=== PATIENT | female | born 1950 | race Caucasian/White ===

== ENCOUNTER 2016-08-04 10:57 | Day surgery (SDC) | payer MEDICARE, OTHER ==
[2016-07-28 18:38] LABS: HEMATOCRIT 41.6 % (36.0-48.0); HEMOGLOBIN 13.1 g/dL (12.0-16.0)
[2016-07-28 18:54] LABS: BUN (BLOOD UREA NITROGEN) 12 MG/DL (6-23); CALCIUM, SERUM 9.4 MG/DL (8.5-10.4); CHLORIDE, SERUM 105 MMOL/L (96-112); CO2 (CARBON DIOXIDE) 24 MMOL/L (24-34); CREATININE 0.75 MG/DL (0.55-1.02); GFR AFRICAN AMERICAN 97 ML/MIN (>=60); GFR NON AFRICAN AMERICAN 84 ML/MIN (>=60); GLUCOSE, SERUM 77 MG/DL (60-99); POTASSIUM, SERUM 4.3 MMOL/L (3.5-5.3)
[2016-07-28 18:55] LABS: SODIUM, SERUM 140 MMOL/L (135-148)
--- NOTE | ~2016-08-04 | OP ---
Record Of Operation [facility] [address] [place]. [address] NAME: BECKIE MONGE : 50 STATUS : [facility]#: [id number] AGE: 65 ADM/REG DATE : 08/04/16 MR#: [id number] REPORT SERV DATE: 08/04/16 DICTATED BY: Prince DE LA TORRE DATE: 08/04/16 REPORT STATUS : Draft TRANSCRIBED BY: CHESTER DATE: 08/04/16 DATE OF PROCEDURE: PREOPERATIVE DIAGNOSIS: Basal cell carcinoma of the left upper nasal sidewall-medial portion of the left lower eyelid. POSTOPERATIVE DIAGNOSIS: Basal cell carcinoma of the left upper nasal sidewall-medial portion of the left lower eyelid. NAME OF OPERATION: 1. Wide excision of basal cell carcinoma of the left upper nasal sidewall-medial portion of left lower eyelid with frozen section. 2. Harvesting of full-thickness skin graft from right upper outer eyelid (in the swinomish's foot area). 3. Full-thickness skin graft reconstruction of left upper nasal sidewall-medial lower eyelid defect. FINDINGS: A 5 mm lesion requiring a 9 mm resection, involving the left upper nasal sidewall and adjacent medial portion of the left lower eyelid. INDICATION: This 65-year-old female has a biopsy-proven basal cell carcinoma of the left upper nasal sidewall fairly close to a previous resection of a basal cell carcinoma, but separate from it. We had resected basal cell carcinoma of the left medial lower eyelid near the lash line and reconstructed that with a full-thickness skin graft. She had a lesion separate from the grafted area but fairly close to it, and this was biopsied and found to be basal cell carcinoma. She now presents for excision with frozen section and reconstruction. The pros and cons, alternatives, benefits, risks, limitations, and complications (including, but not limited to, graft failure, distortion of the eye, scleral show, ectropion, imponderables) were discussed at length. No guarantees expressed. She understands and wishes to proceed. Proper consent obtained. DESCRIPTION OF PROCEDURE: She was taken into the operating room and given general oral endotracheal anesthesia in the supine position. The table was turned. The eyelid area bilaterally was prepped with diluted Betadine solution (diluted with saline to make a "tea"). The remainder the face was prepped with chlorhexidine and saline. Sterile drapes were applied. The lesion of the left upper nasal sidewall near the lower eyelid was marked out with a marking pen, and then a 2 mm margin of safety was marked out around this creating a 9 mm circular excision. The 12, 3, 6, and 9 o'clock positions were marked. This excision extended into the medial portion of the left lower eyelid. The area was injected with 1% Xylocaine with 1:100,000 epinephrine. Five minutes elapsed for vasoconstriction. The excision was performed with a #15C blade according to the markings to include the margins around the lesion. Before the tumor was removed from the tumor bed, a suture was placed at the 12 o'clock position. The tumor was then removed from the tumor bed and given Record Of Operation [address] [address] NAME: BECKIE MONGE : 50 STATUS : [facility] PAT#: [id number] AGE: 65 ADM/REG DATE : 08/04/16 MR#: [id number] REPORT SERV DATE: 08/04/16 DICTATED BY: Prince DE LA TORRE DATE: 08/04/16 REPORT STATUS : Draft TRANSCRIBED BY: CHESTER DATE: 08/04/16 to the pathology team to perform frozen sections. While the frozen sections were being performed, a template was made of the defect. This was transferred over to the swinomish's foot area of the opposite right upper eyelid and angled fusiform ellipse was marked out in a fashion not to do any raising of her upper eyelid. The maximum pull was just outside the lateral canthus and actually would help elevate the lower eyelid when this area was repaired after the graft harvested. The template fit nicely in this angled fusiform excision. The frozen sections returned showing margins free of tumor. Next, the right upper eyelid area that was marked out for excision was injected with 1% Xylocaine with 1:100,000 epinephrine. It should be noted that we had to tape her eyes closed because both eyelids would tend to open because of previous blepharoplasty that she has had. Next, the skin graft was harvested from the swinomish's foot area with a #15 blade. Hemostasis was obtained with the [employer] needle tip cautery at a very low setting. The wound was closed with interrupted 6-0 Prolene except the very medial portion of this was closed with Dermabond. Hemostasis was obtained at the surgical excisional site with pressure as well as pinpoint cauterization with the [employer] needle tip cautery. The skin graft was then cut to fit and sutured in place with interrupted 6-0 Prolene. Hemostasis was excellent. The skin graft was then treated with Xeroform, then Telfa, then a piece of sterile sponge cut from a sterile scrub sponge that had no soap in it. This bolster was then kept in place with an [id number] suture of 6-0 Prolene. The dressing was further secured with Mastisol and paper tape. She was awakened and extubated and taken to recovery room in good condition having tolerated procedure well. Home going instructions include prescriptions for cefdinir 300 mg, #20, 1 p.o. b.i.d. until all taken; generic Zofran 8 mg ODT #9 one dissolved orally q.6 h. p.r.n. nausea or vomiting; hydrocodone 7.5 mg/325 mg APAP #15 one-half to one p.o. q.4-6 hours p.r.n. pain. Recheck in the office in 6 days. She is to avoid facial motions, and she is to keep the dressing dry and intact. She is to sleep elevated. DAKOTAH/CHESTER Prince De La Torre M.D. / [id number] Record Of [address] [address] NAME: BECKIE MONGE : 50 STATUS : [facility] PAT#: [id number] AGE: 65 ADM/REG DATE : 08/04/16 MR#: [id number] REPORT SERV DATE: 08/04/16 DICTATED BY: Prince DE LA TORRE DATE: 08/04/16 REPORT STATUS : Draft TRANSCRIBED BY: CHESTER DATE: 08/04/16 CC: Mary Lou Cheek Jr., M.D.
[~2016-08-04 10:57] MED LIST: NORV5 PO; PRIN20 PO; PROZAC PO; XANAX1 MG PO
== END 2016-08-04 18:09 | disposition home or self-care (01) ==
LOC: SDC 10:57
PROVIDERS: Specialist
PROC: 0HB1XZZ Excision of Face Skin, External Approach (ICD-10-PCS; 2016-08-04)
PROC: 0HR1X73 Replacement of Face Skin with Autologous Tissue Substitute, Full Thickness, External Approach (ICD-10-PCS; principal; 2016-08-04 12:45)
DX: C44.311 Basal cell carcinoma of skin of nose (principal); I10 Essential (primary) hypertension; H91.90 Unspecified hearing loss, unspecified ear; F32.9 Major depressive disorder, single episode, unspecified; Z79.899 Other long term (current) drug therapy; Z98.890 Other specified postprocedural states; Z90.710 Acquired absence of both cervix and uterus; Z85.820 Personal history of malignant melanoma of skin
CPT/HCPCS: 36415; 80048; 85014; 85018; 88305; 88331; 93005; A9270-GY; J2250; J2405; J2710; J3010